=== PATIENT | male | born 1990 | race Caucasian/White ===

== ENCOUNTER 2019-10-15 16:14 | Emergency (ER) | payer OTHER ==
[~2019-10-15] VITALS: Ht 170.2 cm; Wt 72.6 kg
--- NOTE | 2019-10-15 17:45 | NUR ---
EDUINFNE NOTIFIED OF NEED FOR EXAM - SPOKE WITH JOANNA, STATES THAT IT WILL BE APPROX 2 HOURS
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
--- NOTE | 2019-10-15 19:36 | NUR ---
[facility] AT BEDSIDE
== END 2019-10-15 22:05 | disposition home or self-care (01) ==
LOC: ER 16:14
DX: Z03.89 Encounter for observation for other suspected diseases and conditions ruled out (principal); F84.5 Asperger's syndrome
CPT/HCPCS: 99283